=== PATIENT | male | born 1975 | race Caucasian/White ===

== ENCOUNTER 2018-11-21 | Emergency (ER) | payer SELFPAY ==
--- NOTE | 2018-11-21 15:59 | ED.PDOC ---
History of Present Illness - General Chief Complaint: Skin/Abrasion/Tear Stated Complaint: Several abrasions, excoriations to the head Time Seen by Provider: 11/21/18 15:44 - History of Present Illness Initial Comments: 43 yo male who presents with cc of scalp rash. Reports onset 4 days ago and worsening. Began as burning sensation in back of head and has now spread to back/top of head with scattered red painful bumps which are itchy and he has been scratching with worsening. Reports some drainage from some of the lesions. Reports constant moderate pain to involved areas, tried dandruff shampoo without relief. Wears a hat at work and sweats frequently and thinks causing worsening. No fevers, chills. Allergies/Adverse Reactions: Allergies NO KNOWN ALLERGY Allergy (Verified 11/21/18 15:25) Home Medications: Ambulatory Orders Meclizine HCl 25 mg PO Q6HR PRN #15 tab 09/24/13 Acetamin W/Cod #3 Tab [Tylenol #3 Tab] 1 ea PO Q6H PRN #12 tab 10/21/15 Dicloxacillin Sodium 250 mg PO Q6HRS #40 cap 11/21/18 Review of Systems - Review of Systems Review of Systems: 11/21/18 15:59 see HPI All other Systems: Reviewed and Negative Past Medical History (General) - Patient Medical History Hx Seizures: No Hx Stroke: No Hx Dementia: No Hx Asthma: No Hx of COPD: No Hx Cardiac Disorders: No Hx Congestive Heart Failure: No Hx Pacemaker: No Hx Hypertension: No Hx Thyroid Disease: No Hx Diabetes: No Hx Gastroesophageal Reflux: No Hx Renal Disease: No Hx Cancer: No Hx of HIV: No Hx Hepatitis C: No Hx MRSA: No Surgical History: no surgical history - Vaccination History Hx Tetanus, Diphtheria Vaccination: No Hx Influenza Vaccination: No Hx Pneumococcal Vaccination: No - Social History Hx Tobacco Use: Yes Hx Chewing Tobacco Use: No Hx Alcohol Use: Yes Hx Substance Use: No Hx Substance Use Treatment: No Hx Depression: No Hx Physical Abuse: No Hx Emotional Abuse: No Hx Suspected Abuse: No - Female History Patient is a Female of Child Bearing Age (10 -59 yrs old): No Patient : No Family Medical History - Family History Mother Family History: No Known Living Status: Still Living Grandparents Living Status: Hx Family Stroke: Yes Physical Exam - Physical Exam General Appearance: Alert, No apparent distress Eye Exam: bilateral normal Ears, Nose, Throat: hearing grossly normal, normal ENT inspection, normal pharynx Neck: non-tender, full range of motion, lymphadenopathy (R) - mild tender posterior auricular MERLIN without redness/warmth, lymphadenopathy (L) - mild tender posterior auricular MERLIN without redness/warmth Respiratory: lungs clear, normal breath sounds, no respiratory distress Cardiovascular/Chest: normal peripheral pulses, regular rate, rhythm, no murmur Gastrointestinal/Abdominal: non tender, soft Back Exam: normal inspection, no CVA tenderness, no vertebral tenderness Extremity: normal range of motion, non-tender, normal inspection Neurologic: no motor/sensory deficits, alert, normal mood/affect, oriented x 3 Skin Exam: warm/dry, rash - scattered pustular erythematous rash to posterior scalp at site of hair follicles Progress - Progress Progress: 11/21/18 16:02 Scalp rash -appears c/w staphylococcal folliculitis of the scalp. Consider also seborrheic dermatitis vs contact dermatitis vs other -will treat with oral dicloxacillin 250 mg QID x10 days and topical therapies to scalp Departure - Departure Clinical Impression: Staphylococcus aureus superficial folliculitis Time of Disposition: 16:03 Disposition: Discharge to Home or Self Care Condition: Good Departure Forms: ED Discharge - Pt. Copy, Patient Portal Self Enrollment Instructions: Folliculitis (DC) Prescriptions: Dicloxacillin Sodium 250 mg PO Q6HRS #40 cap Home Medications: Ambulatory Orders Meclizine HCl 25 mg PO Q6HR PRN #15 tab 09/24/13 Acetamin W/Cod #3 Tab [Tylenol #3 Tab] 1 ea PO Q6H PRN #12 tab 10/21/15 Dicloxacillin Sodium 250 mg PO Q6HRS #40 cap 11/21/18 Additional Instructions: Apply topical mupirocin ointment to affected areas 3-5 times per day until healed. Take the antibiotics by mouth as prescribed and finish the full course as well. Avoid aggravating conditions (sweaty scalp, scratching, etc...). You may apply topical hydrocortisone 1% cream OTC 2-3 times daily and take Benadryl as needed to help limit itching.
== END 2018-11-21 16:15 | disposition home or self-care (01) ==

== ENCOUNTER 2019-08-29 23:59 | Emergency (ER) | payer SELFPAY ==
[2019-08-30] MEDS ORDERED: NIFEdipine XL 30 MG TAB PO ONE (00:37)
[2019-08-30] MEDS ORDERED: GABAPENTIN 300 MG CAP PO ONE ×2 (00:37→01:05)
--- NOTE | 2019-08-30 00:45 | ED.PDOC ---
History of Present Illness - General Time Seen by Provider: 08/30/19 00:00 Source: patient Exam Limitations: no limitations - History of Present Illness Initial Comments: The patient is a 44-year-old male presented emergency room secondary to pain in his fingertips with intermittent inflammation and drainage over the last 2 years. 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 There is no evidence of any inflammation currently he just reports that the tips of his fingers hurt. The tips of the skin of the fingers is thickened as and a callus. No obvious evidence of other autoimmune manifestations.He denies any oral lesions. No weight loss. No vision changes. No history of any kidney problems. Timing/Duration: other - Patient reports that this is been going on 2 to 3 years at least. Severity: moderate Improving Factors: nothing Worsening Factors: nothing Associated Symptoms: denies symptoms Allergies/Adverse Reactions: Allergies NO KNOWN ALLERGY Allergy (Verified 11/21/18 15:25) Home Medications: Ambulatory Orders Meclizine HCl 25 mg PO Q6HR PRN #15 tab 09/24/13 Acetamin W/Cod #3 Tab [Tylenol #3 Tab] 1 ea PO Q6H PRN #12 tab 10/21/15 Dicloxacillin Sodium 250 mg PO Q6HRS #40 cap 11/21/18 Gabapentin 300 mg PO QPM PRN #30 cap 08/30/19 NIFEdipine XL [Procardia Xl] 30 mg PO QDPC #30 tab 08/30/19 Review of Systems - Review of Systems Constitutional: States: no symptoms reported EENTM: States: no symptoms reported Respiratory: States: no symptoms reported Cardiology: States: no symptoms reported Gastrointestinal/Abdominal: States: no symptoms reported Genitourinary: States: no symptoms reported Musculoskeletal: States: no symptoms reported Skin: States: see HPI Neurological: States: see HPI Endocrine: States: no symptoms reported All other Systems: No Change from Baseline Past Medical History (General) - Patient Medical History Hx Seizures: No Hx Stroke: No Hx Dementia: No Hx Asthma: No Hx of COPD: No Hx Cardiac Disorders: No Hx Congestive Heart Failure: No Hx Pacemaker: No Hx Hypertension: No Hx Thyroid Disease: No Hx Diabetes: No Hx Gastroesophageal Reflux: No Hx Renal Disease: No Hx Cancer: No Hx of HIV: No Hx Hepatitis C: No Hx MRSA: No - Vaccination History Hx Tetanus, Diphtheria Vaccination: No Hx Influenza Vaccination: No Hx Pneumococcal Vaccination: No - Social History Hx Tobacco Use: Yes Hx Chewing Tobacco Use: No Hx Alcohol Use: Yes Hx Substance Use: No Hx Substance Use Treatment: No Hx Depression: No Hx Physical Abuse: No Hx Emotional Abuse: No Hx Suspected Abuse: No - Female History Patient : No Family Medical History - Family History Mother Family History: No Known Living Status: Still Living Grandparents Living Status: Hx Family Stroke: Yes Physical Exam - Physical Exam General Appearance: Alert, Comfortable, No apparent distress Eye Exam: bilateral normal Ears, Nose, Throat: hearing grossly normal, normal pharynx Neck: non-tender, supple Respiratory: no respiratory distress, no accessory muscle use Cardiovascular/Chest: normal peripheral pulses, no edema Peripheral Pulses: radial,right: 2+, radial,left: 2+ Rectal Exam: deferred Extremity: normal range of motion, no pedal edema, normal capillary refill 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 Skin Exam: pallor - To the tip of the fingers Comments: Vital Signs - 24 hr 08/29/19 23:59 Temperature 98.1 F Pulse Rate [Rt 114 H Arm] Respiratory 16 Rate Blood Pressure 121/85 [Right Arm] O2 Sat by Pulse 99 Oximetry Progress - Progress Progress: 08/30/19 00:45 The patient is a 44-year-old male presented emergency room with long standing pain to the tip of his fingers and changes in the skin that are most likely consistent with raynauds phenomenon. Accordingly, the most important thing the patient needs to do is stop smoking. Additionally heat may help and avoiding cold may help. Dzko-slu-vdjujda anti-inflammatory such as Aleve can help reduce discomfort. The patient will be written for a short prescription of gabapentin to use nightly to see if that helps. I will also write him for a months worth of extended release nifedipine at 30 mg to be taken daily to help reduce any flaring. He does need to follow-up with his primary care doctor in 2 to 3 weeks for repeat evaluation. ER warnings are given. [email or web address] [phone] Departure - Departure Clinical Impression: Raynaud phenomenon Qualifiers: Raynaud?s-associated gangrene presence: without gangrene Qualified Code(s): I73.00 - Raynaud's syndrome without gangrene Disposition: Discharge to Home or Self Care Condition: Fair Diet: regular diet Activity: increase activity as tolerated Prescriptions: Gabapentin 300 mg PO QPM PRN #30 cap PRN Reason: Moderate Pain NIFEdipine XL [Procardia Xl] 30 mg PO QDPC #30 tab Home Medications: Ambulatory Orders Meclizine HCl 25 mg PO Q6HR PRN #15 tab 09/24/13 Acetamin W/Cod #3 Tab [Tylenol #3 Tab] 1 ea PO Q6H PRN #12 tab 10/21/15 Dicloxacillin Sodium 250 mg PO Q6HRS #40 cap 11/21/18 Gabapentin 300 mg PO QPM PRN #30 cap 08/30/19 NIFEdipine XL [Procardia Xl] 30 mg PO QDPC #30 tab 08/30/19 Additional Instructions: The patient is a 44-year-old male presented emergency room with longstanding pain to the tip of his fingers and changes in the skin that are most likely consistent with raynauds phenomenon. Accordingly, the most important thing the patient needs to do is stop smoking. Additionally heat may help and avoiding cold may help. Yaob-kuv-tfdgxoc anti-inflammatory such as Aleve can help reduce discomfort. The patient will be written for a short prescription of gabapentin to use nightly to see if that helps. I will also write him for a months worth of extended release nifedipine at 30 mg to be taken daily to help reduce any flaring. He does need to follow-up with his primary care doctor in 2 to 3 weeks for repeat evaluation. ER warnings are given.
[2019-08-30 01:16] VITALS: BP 120/74; TEMP 98.4; O2SAT 98
== END 2019-08-30 01:15 | disposition home or self-care (01) ==
LOC: ER 23:59
DX: I73.00 Raynaud's syndrome without gangrene (principal); F17.200 Nicotine dependence, unspecified, uncomplicated

== ENCOUNTER 2020-04-23 15:59 | Emergency (ER) | payer SELFPAY ==
[2020-04-23] MEDS ORDERED: FLUORESCEIN SODIUM OPHTH STRIP ONE (16:04)
[2020-04-23] MEDS ORDERED: TETRACAINE HCL 0.5% OPHTH SOL 1 DROP ONE (16:04)
[2020-04-23] MEDS ORDERED: OPHTHALMIC SALT SOLUTION 120 ML BTTL ONE (16:04)
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
[2020-04-23 16:37] VITALS: BP 132/78; TEMP 97.5; O2SAT 97
== END 2020-04-23 16:35 | disposition home or self-care (01) ==
LOC: ER 15:59
DX: H10.212 Acute toxic conjunctivitis, left eye (principal); T26.02XA Burn of left eyelid and periocular area, initial encounter; X10.2XXA Contact with fats and cooking oils, initial encounter; Y93.G3 Activity, cooking and baking; Y92.9 Unspecified place or not applicable